=== PATIENT | male | born 1980 | race Two or more races ===

== ENCOUNTER 2018-06-09 14:02 | Outpatient (RCR) | payer SELFPAY | END 2018-06-21 | disposition home or self-care (01) | LOC: WCC 14:02 | DX: H93.13 Tinnitus, bilateral (principal); Z88.0 Allergy status to penicillin | CPT/HCPCS: G0277 ×8 ==

== ENCOUNTER 2018-06-24 12:21 | Outpatient (RCR) | payer SELFPAY | END 2018-07-21 | disposition home or self-care (01) | LOC: WCC 12:21 | DX: H93.13 Tinnitus, bilateral (principal); Z88.0 Allergy status to penicillin | CPT/HCPCS: G0277 ×4 ==

== ENCOUNTER 2018-12-14 11:44 | Outpatient (RCR) | payer SELFPAY | END 2018-12-21 | disposition home or self-care (01) | LOC: WCC 11:44 | DX: H93.13 Tinnitus, bilateral (principal); Z88.0 Allergy status to penicillin | CPT/HCPCS: G0277 ×6 ==

== ENCOUNTER 2018-12-22 08:45 | Outpatient (RCR) | payer SELFPAY | END 2019-01-21 | disposition home or self-care (01) | LOC: WCC 08:45 | DX: H93.13 Tinnitus, bilateral (principal); Z88.0 Allergy status to penicillin ==